=== PATIENT | female | born 1990 | race Caucasian/White ===

== ENCOUNTER 2017-07-06 18:03 | Emergency (ER) | payer MEDICAID, OTHER ==
[~2017-07-06] VITALS: Ht 157.5 cm; Wt 83.3 kg
[~2017-07-06 18:03] MED LIST: HYOS0.1251 PO; PROM25TA5 PO
[2017-07-06 18:04] VITALS: BP 165/102; PULSE 108; RESP 18; TEMP 98.4; O2SAT 98
[2017-07-06 18:23] LABS: BLOOD, URINE NEG (NEG); GLUCOSE,URINE NEG (NEG); KETONE, URINE TRACE mg/dL (NEG); NITRITE,URINE NEG (NEG)
[2017-07-06 18:29] LABS: URINE COLOR YELLOW (YELLW/STRAW)
[2017-07-06 18:30] LABS: BACTERIA, URINE MOD /hpf; COMMENT (UR) CULTURE INDICATED; CULTURE IF INDICATED CULTURE INDICATED; RBC, URINE 0-3 /hpf (0-3)
[2017-07-06] MEDS ORDERED: ONDANSETRON HCL 4 MG/2 ML VIAL IVP ONE (18:30)
[2017-07-06] MEDS ORDERED: SODIUM CHLORIDE 0.9% FLUSH 10 ML FLUSH IVF PRN (18:30)
[2017-07-06] MEDS ORDERED: HYDROmorphone HCL PF 2 MG/ML VIAL IM ONE (18:30)
[2017-07-06 18:34] VITALS: BP 144/96; PULSE 92; RESP 16
[2017-07-06] MEDS ORDERED: HYDROmorphone HCL PF 2 MG/ML VIAL IV PUSH ONE (18:45)
--- NOTE | 2017-07-06 19:08 | PD ---
HPI . Left groin pain since last night Chief Complaint: Abdominal Pain Time Seen by Provider: 18:11 Travel History International Travel<30 days: No Contact w/Intl Traveler<30days: No Traveled to known affect area: No History of Present Illness HPI Pt is a 26yo female who presents to ED with pain in her LLQ and groin since last night. Pt states that the pain has stayed mostly in her LLQ and groin but also noted some pain/tenderness of her L flank. Pt describes the pain as 10/10 and sharp. Pt states that the pain was "like a muscle cramp or a matthias horse, but worse." Pt states that she has never had a pain like this before. Pt mentions minimal relief with ibuprofen (last dose was at 0700). Pt has no modifiers. Pt states increased urinary output, chills, unusual vaginal odor, and "darker urine than before". Pt has a PMHx significant for cholecystitis, gallstone pancreatitis and subsequent operative cholecystectomy. Otherwise, Pt takes no medications and has NKDA. PFSH Past Medical History Asthma: No Anxiety: Yes Depression: No Cancer: No Cardiovascular Problems: No Diminished Hearing: No Endocrine: No Gastrointestinal Disorders: Yes (CHOLESYSTITIS) Genitourinary: No Headaches: Yes Immune Disorder: No Implanted Vascular Access Dvce: No Kidney Stones: No Musculoskeletal: No Neurologic: Yes Psychiatric: Yes Reproductive: No Respiratory: No Immunizations Current: Yes Migraines: Yes Pancreatitis: Yes Tetanus Vaccination: > 5 Years Influenza Vaccination: Yes PNEUMOCCOCAL Vaccine (Year): 3 ?: Unknown LMP: 10-17 Menopausal: No : 2 Para: 1 Miscarriage: 1 : 0 Past Surgical History Abdominal Surgery: Yes (gallbladder removed.) Cholecystectomy: Yes (06/2012) Other Surgery: Yes (EPIDURAL WITH VAG DELIVERY 10/31/11) Social History Alcohol Use: No Tobacco Use: No Substance Use: No Allergies-Medications (Allergen,Severity, Reaction): Coded Allergies: No Known Allergies (Verified Adverse Reaction, Unknown, 07/06/17) Reported Meds & Prescriptions Reported Meds & Active Scripts Active Flexeril (Cyclobenzaprine HCl) 10 Mg Tab 10 Mg PO TID Macrobid (Nitrofurantoin Monoh/Nitrofur Macro) 100 Mg Cap 100 Mg PO BID 5 Days Review of Systems Except as stated in HPI: all other systems reviewed are Neg General / Constitutional: Positive: Chills Eyes: No: Diploplia, Blurred Vision, Photophobia, Drainage, Redness, Foreign Body Sensation, Pain, Tearing, Blind Spots, Visual changes, Blindness, Other HENT: No: Headaches, Vertigo, Lightheadedness, Sore Throat, Rhinitis, Rhinorrhea, Congestion, Nosebleed, Neck Stiffness, Neck Pain, Masses, Gingival Bleeding, Dental Difficulties, Ear Discharge, Earache, Other Cardiovascular: No: Chest Pain or Discomfort, Palpitations, Irregular Rhythm, Tachycardia, Diaphoresis, Syncope, Dyspnea on exertion, Varicosities, Edema, Cyanosis, Varicosities, Phlebitis, Claudication, Other Respiratory: No: Cough, Shortness of Breath, Wheezing, Sneezing, Orthopnea, Hemoptysis, Stridor, Night Sweats, Pleuritic Pain, Other Gastrointestinal: Positive: Nausea, Abdominal Pain Genitourinary: Positive: Frequency, Dysuria, Flank Pain Musculoskeletal: No: Myalgias, Arthralgias, Limited ROM, Weakness, Cramping, Edema, Pain, Atrophy, Other Skin: No Rash, No Itching, No Dryness, No Lumps, No Hives, No Change in Pigmentation, No Change in nails, No Alopecia, No Lesions, No Breast Lumps, No Breast Tenderness, No Breast Swelling, No Other Neurologic: No: Weakness, Dizziness, Syncope, Focal Abnormalities, Coordination Problem, Tremor, Ataxia, Headache, Change in Mentation, Slurred Speech, Paresthesia, Incontinence, Seizures, Sensory Disturbance, Other Psychiatric: No: Anxiety, Depression, Suicidal Ideations, Disorder of Thought, Mood Disorder, Substance Abuse, Homicidal Ideation, Other Endocrine: No: Heat Intolerance, Cold Intolerance, Polyuria, Polydipsia, Other Hematologic/Lymphatic: No: Easy Bruising, Lymph Node Enlargement, Other Physical Exam Narrative GENERAL: alert, awake, and oriented. mild distress. HEAD: atraumatic, normocephalic SKIN: warm, dry, good color and turgor. no signs of cyanosis or dehydration. no signs of jaundice. NECK: supple w/o lymphadenopathy CV: RRR w/ normal heart sounds ABDOMEN: normoactive bowel sounds, CVA tenderness on L, TTP in the L suprapubic/ LLQ/inguinal region. no rebound. pain elicited with ROM of LLE. RESPIRATORY: CTA bilat, normal breath sounds and aeration PSYCH: appropriate mood and affect. Data Data Last Documented VS Vital Signs Date Time Temp Pulse Resp B/P (MAP) Pulse Ox O2 Delivery O2 Flow Rate FiO2 07/06/17 18:34 92 16 144/96 (112) 07/06/17 18:04 98.4 98 Orders Orders Urinalysis - C+S If Indicated (07/06/17 18:11) Ed Urine Pregnancytest Poc (07/06/17 18:11) Ct Abd/Pel W/O Iv Contrast (07/06/17 18:27) Ondansetron Inj (Zofran Inj) (07/06/17 18:30) Sodium Chloride 0.9% Flush (Ns Flush) (07/06/17 18:30) Hydromorphone Pf Inj (Dilaudid Pf Inj) (07/06/17 18:30) Urine Culture (07/06/17 18:15) Hydromorphone Pf Inj (Dilaudid Pf Inj) (07/06/17 18:45) ^ Saline Lock (07/06/17 18:34) Labs Laboratory Tests Test 07/06/17 18:15 Urine Color YELLOW Urine Turbidity SLIGHT Urine pH 6.0 Urine Specific [place] 1.024 Urine Protein NEG mg/dL Urine Glucose (UA) NEG mg/dL Urine Ketones TRACE mg/dL Urine Occult Blood NEG Urine Nitrite NEG Urine Bilirubin NEG Urine Leukocyte Esterase TRACE Urine RBC 0-3 /hpf Urine WBC 6-8 /hpf Urine Squamous Epithelial Cells 6-8 /hpf Urine Bacteria MOD /hpf Microscopic Urinalysis Comment CULTURE INDICATED MDM Medical Decision Making Medical Screen Exam Complete: Yes Emergency Medical Condition: Yes Differential Diagnosis Renal calculi vs ureteral calculi vs iliopsoas muscle strain vs UTI vs Pyelonephritis Narrative Course Pt is a 26yo Female who presents to the ED acutely with LLQ and L flank pain since last night. Given the patient's symptoms and hpi, orders were given to undergo a CT abd/pelvis to r/o kidney other pathology. Orders were also given for pain control with hydromorphone, nausea relief with zofran, UA to r/o UTI, a urine test, and IV fluids. Based on the results of the UA and CT, Pt has a symptomatic UTI without evidence of hydronephrosis or renal stones or pyelonephritis. Pt will be treated with Macrobid upon discharge for UTI and be given Flexeril to treat the symptomatic muscle pain. Diagnosis Primary Impression: Left groin pain Additional Impression: Urinary tract infection Qualified Codes: N30.00 - Acute cystitis without hematuria Scripts Cyclobenzaprine (Flexeril) 10 Mg Tab 10 MG PO TID for Muscle Spasm, #30 TAB 0 Refills Prov: Shanna Palacios MD 07/06/17 Nitrofurantoin Monohydrate Macrocrystals (Macrobid) 100 Mg Cap 100 MG PO BID for Infection for 5 Days, #10 CAP 0 Refills Prov: Shanna Palacios MD 07/06/17 Disposition: 01 DISCHARGE HOME Condition: Stable Shanna Palacios MD Jul 06, 2017 19:08
--- NOTE | 2017-07-06 19:28 | RADRPT ---
EXAM DATE/TIME: 07/06/2017 19:01 [facility] COMPARISON: CT ABDOMEN & PELVIS W/O CONTRAST, June 02, 2015, 8:31. INDICATIONS : Left groin pain. ORAL CONTRAST: No oral contrast ingested. RADIATION DOSE: 16.29 CTDIvol (mGy) MEDICAL HISTORY : Pancreatitis. SURGICAL HISTORY : Cholecystectomy. ENCOUNTER: Initial ACUITY: 1 day PAIN SCALE: 4/10 LOCATION: Left groin TECHNIQUE: Volumetric scanning of the abdomen and pelvis was performed. Using automated exposure control and ad justment of the mA and/or kV according to patient size, radiation dose was kept as low as reasonably achievable to obtain optimal diagnostic quality images. DICOM format image data is available electro nically for review and comparison. FINDINGS: LOWER LUNGS: The visualized lower lungs are clear. LIVER: Homogeneous density without lesion. There is no dilation of the biliary tree. Gallbladder is surgica lly absent. SPLEEN: Normal size without lesion. PANCREAS: Within normal limits. KIDNEYS: Normal in size and shape. There is no mass, stone, or hydronephrosis. ADRENAL GLANDS: Within normal limits. VASCULAR: There is no aortic aneurysm. BOWEL/MESENTERY: The stomach, small bowel, and colon demonstrate no acute abnormality. There is no free intraperitone al air or fluid. ABDOMINAL WALL: Within normal limits. RETROPERITONEUM: There is no lymphadenopathy. BLADDER: No wall thickening or mass. REPRODUCTIVE: Within normal limits. INGUINAL: There is no lymphadenopathy or hernia. MUSCULOSKELETAL: Within normal limits for patient age. CONCLUSION: No acute disease. Shun Gaitan Jr., MD on July 06, 2017 at 19:24 Board Certified Radiologist. This report was verified electronically.
[2017-07-06] MEDS ORDERED: CYCL10TA PO (19:47)
[2017-07-06] MEDS ORDERED: MACR100C2 PO (19:47)
[2017-07-06 20:10] VITALS: BP 136/84; PULSE 88; RESP 20; O2SAT 97
== END 2017-07-06 20:26 | disposition home or self-care (01) ==
LOC: PHED 18:03
DX: R10.32 Left lower quadrant pain (principal); N30.00 Acute cystitis without hematuria; R11.0 Nausea; Z86.59 Personal history of other mental and behavioral disorders; Z87.19 Personal history of other diseases of the digestive system; Z86.69 Personal history of other diseases of the nervous system and sense organs
CPT/HCPCS: 74176; 81001; 84703; 87086; 96374; 96375; 99285; J1170; J2405

== ENCOUNTER 2017-10-13 14:02 | Emergency (ER) | payer MEDICAID ==
[~2017-10-13] VITALS: Ht 157.5 cm; Wt 77.6 kg
[~2017-10-13 14:02] MED LIST changes: +CYCL10TA PO; -HYOS0.1251 PO; +MACR100C2 PO; -PROM25TA5 PO
[2017-10-13 14:09] VITALS: BP 166/100; PULSE 97; RESP 16; TEMP 98.9; O2SAT 99
--- NOTE | 2017-10-13 15:51 | PD ---
HPI Chief Complaint: Scalemaker Problem/Complaint Time Seen by Provider: 15:19 Travel History International Travel<30 days: No Contact w/Intl Traveler<30days: No Traveled to known affect area: No History of Present Illness HPI The patient was seen and examined in the presence of the nurse. This patient complains of vaginal bleeding. She's had 2 days of spotting. No pelvic pain or presyncopal symptoms. She has irregular menstrual periods and doesn't know if she is . Symptoms severity is mild. No alleviating factors PFSH Past Medical History Asthma: No Anxiety: Yes Depression: No Cancer: No Cardiovascular Problems: No Diminished Hearing: No Endocrine: No Gastrointestinal Disorders: Yes (CHOLESYSTITIS) Genitourinary: No Headaches: Yes Immune Disorder: No Implanted Vascular Access Dvce: No Kidney Stones: No Musculoskeletal: No Neurologic: Yes Psychiatric: Yes Reproductive: No Respiratory: No Immunizations Current: Yes Migraines: Yes Pancreatitis: Yes Tetanus Vaccination: > 5 Years Influenza Vaccination: No PNEUMOCCOCAL Vaccine (Year): 3 ?: Not LMP: 08/07/17 Menopausal: No : 2 Para: 1 Miscarriage: 1 : 0 Past Surgical History Abdominal Surgery: Yes (gallbladder removed.) Cholecystectomy: Yes (06/2012) Other Surgery: Yes (EPIDURAL WITH VAG DELIVERY 10/31/11) Social History Alcohol Use: No Tobacco Use: No Substance Use: No Allergies-Medications (Allergen,Severity, Reaction): Coded Allergies: No Known Allergies (Verified Adverse Reaction, Unknown, 10/13/17) Reported Meds & Prescriptions Reported Meds & Active Scripts Active No Active Prescriptions or Reported Medications Review of Systems General / Constitutional: No: Fever Eyes: No: Visual changes HENT: No: Headaches Cardiovascular: No: Chest Pain or Discomfort Respiratory: No: Shortness of Breath Gastrointestinal: No: Abdominal Pain Genitourinary: Positive: Vaginal Bleeding, No: Dysuria Musculoskeletal: No: Pain Skin: No Rash Neurologic: No: Weakness Psychiatric: No: Depression Endocrine: No: Polydipsia Hematologic/Lymphatic: No: Easy Bruising Physical Exam Narrative GENERAL: Well-nourished, well-developed patient in no apparent distress. SKIN: Focused skin assessment reveals no rash and nodules. Skin is Warm and dry. HEAD: Atraumatic. Normocephalic. EYES: Pupils equal and round. No scleral icterus. No injection or drainage. ENT: No nasal bleeding or discharge. Mucous membranes pink and moist. NECK: Trachea midline. No JVD. CARDIOVASCULAR: Regular rate and rhythm. No murmur appreciated. RESPIRATORY: No accessory muscle use. Clear to auscultation. Breath sounds equal bilaterally. GASTROINTESTINAL: Abdomen soft, non-tender, nondistended. Hepatic and splenic margins not palpable. MUSCULOSKELETAL: No obvious deformities. No clubbing. No cyanosis. No edema. NEUROLOGICAL: Awake and alert. No obvious cranial nerve deficits. Motor grossly within normal limits. Normal speech. PSYCHIATRIC: Appropriate mood and affect; insight and judgment normal. Data Data Last Documented VS Vital Signs Date Time Temp Pulse Resp B/P (MAP) Pulse Ox O2 Delivery O2 Flow Rate FiO2 10/13/17 14:09 98.9 97 16 166/100 (122) 99 Orders Orders Ed Urine Pregnancytest Poc (10/13/17 14:29) [facility] Medical Decision Making Medical Screen Exam Complete: Yes Emergency Medical Condition: Yes Medical Record Reviewed: Yes Differential Diagnosis Dysfunction uterine bleeding, ectopic, fibroids Narrative Course I have reviewed the patient's electronic medical record. Urine is negative Stable for outpatient [employer] follow-up Diagnosis Primary Impression: Vaginal bleeding Additional Instructions: Follow-up with [facility] Med/Other Pt SpecificInfo: Other Scripts No Active Prescriptions or Reported Meds Disposition: DISCHARGE HOME Condition: Stable Martin Khalil MD Oct 13, 2017 15:51
== END 2017-10-13 16:10 | disposition home or self-care (01) ==
LOC: PHED 14:02
DX: N93.9 Abnormal uterine and vaginal bleeding, unspecified (principal)
CPT/HCPCS: 84703; 99283